=== PATIENT | male | born 1995 | race Two or more races ===

== ENCOUNTER → 2018-05-21 | Emergency (ER) | payer OTHER ==
[~2018-05-21] VITALS: Ht 157.5 cm; Wt 52.2 kg
== END | disposition left against medical advice (07) ==
LOC: ER 20:10
DX: Z53.20 Procedure and treatment not carried out because of patient's decision for unspecified reasons (principal)

== ENCOUNTER 2020-11-12 15:19 | Emergency (ER) | payer OTHER ==
[~2020-11-12] VITALS: Ht 160 cm; Wt 56.7 kg
[2020-11-12] MEDS ORDERED: ODEFSEY TABLET1 EACH (15:32)
[2020-11-12] MEDS ORDERED: MIRALAX510 GM PO (18:30)
== END 2020-11-12 18:33 | disposition home or self-care (01) ==
LOC: ER 15:19
DX: K59.09 Other constipation (principal)